=== PATIENT | male | born 1945 | race Caucasian/White ===

== ENCOUNTER → 2021-11-10 | Outpatient (CLI) | payer OTHER, MEDICARE, BC | LOC: MC.RAD 13:38 | DX: N64.4 Mastodynia (principal) ==

== ENCOUNTER → 2022-02-25 | Outpatient (CLI) | payer OTHER | LOC: COL.RAD 07:34 | DX: M43.17 Spondylolisthesis, lumbosacral region (principal); M51.17 Intervertebral disc disorders with radiculopathy, lumbosacral region; M51.36 Other intervertebral disc degeneration, lumbar region; M48.061 Spinal stenosis, lumbar region without neurogenic claudication; M48.07 Spinal stenosis, lumbosacral region; G62.89 Other specified polyneuropathies | CPT/HCPCS: A9575 ==

== ENCOUNTER → 2022-10-11 | Outpatient (CLI) | payer OTHER ==
[~2022-10-11] MED LIST: AMOXICILLIN 50500 MG PO; ASPIRIN 81M81 MG/TA2 PO; CALCIUM 600 MG1 EAC2 PO; CYMBALTA 60MG60 MG PO; FLOMAX 0.40.4 MG/CAP PO; GLUCOSAMINE; GLUCOSAMINE & C1 TAB PO; LIPITOR20 MG PO; MULTI VITAMINS1 TAB PO; NEURONTIN600 MG/TAB PO; PREDNISONE20 MG PO; PRILOSEC 20MG20 MG PO; VITAMIN C500 MG PO; VITAMIN D31000 I1 PO; VOLTAREN GEL 1%1 TU TP
== END ==
LOC: MHCPAIN 12:16
DX: M47.817 Spondylosis without myelopathy or radiculopathy, lumbosacral region (principal); M54.16 Radiculopathy, lumbar region; G62.9 Polyneuropathy, unspecified
CPT/HCPCS: G0463

== ENCOUNTER → 2022-10-27 | Outpatient (CLI) | payer OTHER | LOC: MHCPAIN 13:01 | DX: M47.817 Spondylosis without myelopathy or radiculopathy, lumbosacral region (principal); M54.17 Radiculopathy, lumbosacral region | CPT/HCPCS: J1100; Q9967 ==

== ENCOUNTER → 2022-11-22 | Outpatient (CLI) | payer OTHER | LOC: MHCPAIN 14:35 | DX: M79.2 Neuralgia and neuritis, unspecified (principal); M47.817 Spondylosis without myelopathy or radiculopathy, lumbosacral region; M53.3 Sacrococcygeal disorders, not elsewhere classified | CPT/HCPCS: G0463 ==

== ENCOUNTER → 2022-12-22 | Outpatient (CLI) | payer OTHER | LOC: MHCPAIN 09:34 | DX: M47.817 Spondylosis without myelopathy or radiculopathy, lumbosacral region (principal); M54.50 Low back pain, unspecified; M53.3 Sacrococcygeal disorders, not elsewhere classified ==